=== PATIENT | male | born 1990 | race Caucasian/White ===

== ENCOUNTER 2018-07-17 18:30 | Emergency (ER) | payer OTHER ==
[~2018-07-17] VITALS: Ht 180.3 cm; Wt 109.8 kg
[2018-07-17 18:40] VITALS: Ht 180.3 cm; Wt 109.8 kg
[2018-07-17 19:21] LABS: BASOPHIL % 1.1 % (0-2); PLATELET COUNT 303 x10^3mcL (130-400); RED CELL DISTRIBUTION WIDTH 14.2 % (11.5-14.5)
[2018-07-17 19:58] LABS: ALBUMIN 3.8 g/dL (3.4-5.0); ALKALINE PHOSPHATASE 84 U/L (46-116); ALT/SGPT 40 U/L (16-63); AST/SGOT 33 U/L (15-37); BILIRUBIN TOTAL 0.2 mg/dL (0.20-1.00); CALCIUM 8.3 mg/dL (8.5-10.1); CARBON DIOXIDE 26.5 mmol/L (21-32); CHLORIDE SERUM 106 mmol/L (98-107); CREATININE SERUM 1.3 mg/dL (0.7-1.3); GFR1 > 60 mL/min; GLUCOSE SERUM 92 mg/dL (74-106); POTASSIUM SERUM 3.8 mmol/L (3.5-5.1); SODIUM SERUM 144 mmol/L (136-145); TOTAL PROTEIN, SERUM 7.8 g/dL (6.4-8.2)
[2018-07-17 20:18] LABS: AMPHETAMINE QUAL UR NONE DETECTED (See below)
[2018-07-18 00:33] VITALS: BP 122/69
== END 2018-07-18 01:03 | disposition home or self-care (01) ==
LOC: ED 18:30
PROVIDERS: Emergency Medicine
DX: R07.89 Other chest pain (principal); R74.8 Abnormal levels of other serum enzymes
CPT/HCPCS: 85378; J1885; J7030; Q0092